=== PATIENT | female | born 1985 | race Two or more races ===

== ENCOUNTER 2020-02-20 15:53 | Emergency (ER) | payer MEDICAID, OTHER ==
[~2020-02-20] VITALS: Ht 167.6 cm; Wt 167.8 kg
[2020-02-20] MEDS ORDERED: KETOROLAC TROMETH 30 MG/ML 1ML VIAL IV ONE (16:45)
[2020-02-20] MEDS ORDERED: CEFTRIAXONE SODIUM 2 GM in D5W 5% 50 ML IV ONE (16:45)
[2020-02-20] MEDS ORDERED: cefTRIAXone 1GM/50ML D5W 100 ML IV ONE (17:04)
[2020-02-20 17:18] VITALS: BP 164/110
== END 2020-02-20 17:58 | disposition home or self-care (01) ==
LOC: ER 15:53
DX: S91.331A Puncture wound without foreign body, right foot, initial encounter (principal); M79.671 Pain in right foot; L08.89 Other specified local infections of the skin and subcutaneous tissue; E66.01 Morbid (severe) obesity due to excess calories; W56.81XA Bitten by other nonvenomous marine animals, initial encounter; Y93.89 Activity, other specified; Y92.832 Beach as the place of occurrence of the external cause; Y99.8 Other external cause status
CPT/HCPCS: 96365; 96375; 99284; J0696; J1885; J7060; 96374

== ENCOUNTER 2020-05-28 04:21 | Inpatient (IN) | payer MEDICAID ==
[~2020-05-28] VITALS: Ht 167.6 cm; Wt 169.6 kg
[2020-05-28] MEDS ORDERED: ONDANSETRON HCL 4 MG/2 ML VIAL IV ONE (04:45)
[2020-05-28] MEDS ORDERED: MORPHINE SULFATE 10 MG/ML INJ 1ML SDV IV ONE (04:45)
[2020-05-28] MEDS ORDERED: MORPHINE SULFATE 4 MG/ML SYR/VIAL IV ONE ×2 (05:15)
[2020-05-28] MEDS ORDERED: PIPERACILLIN-TAZO 4.5GM 100 ML IV ONE (05:45)
[2020-05-28] MEDS ORDERED: SODIUM CHLORIDE 0.9% 1,000 ML IV ONE (05:45)
[2020-05-28] MEDS ORDERED: metroNIDAZOLE 500MG/100ML 100 ML IV ONE (05:45)
[2020-05-28 06:11] LABS: Basophils # (auto) 0 10 ^3/uL (0-0.2); Basophils % (auto) 0.2 % (0.0-2.0); Eosinophils # (auto) 0 10 ^3/uL (0-0.8); Eosinophils % (auto) 0.2 % (0.0-7.0); Hematocrit 39.8 % (36.0-46.0); Hemoglobin 13.7 g/dL (12.2-16.2); Lymphocytes % (auto) 13.7 % (10.0-50.0); Mean Corpuscular Hemoglobin 28.9 pg (28.0-32.0); Mean Corpuscular Hgb Conc. 34.5 g/dL (32.0-36.0); Mean Corpuscular Volume 83.7 fL (80.0-100.0); Monocytes # (auto) 0.5 10 ^3/uL (0-1.3); Monocytes % (auto) 3.6 % (0.0-12.0); Neutrophils # (auto) 11.9 10 ^3/uL (1.6-8.6); Neutrophils % (auto) 82.3 % (37.0-80.0); Platelet Count (auto) 309 10^3/uL (140-450); Red Blood Cells 4.75 10^6/uL (4.0-5.20); Red Cell Distribution Width 14.5 % (11.8-14.3); White Blood Cell 14.5 10^3/uL (4.4-10.8)
[2020-05-28 06:21] LABS: INR 1.01 (0.9-1.15); Partial Thromboplastin Time 24.8 sec (23.0-31.2)
[2020-05-28 06:24] LABS: Chloride 102 mmol/L (98-107); Potassium 4.2 mmol/L (3.5-5.1); Sodium 135 mmol/L (136-145)
[2020-05-28 06:43] LABS: Alanine Aminotransferase 77 U/L (13-56); Albumin 3.6 g/dL (3.4-5.0); Alkaline Phosphatase 78 U/L (45-117); Amylase 13 U/L (25-115); Anion Gap 8 (5-15); Aspartate Aminotransferase 31 U/L (15-37); BUN/Creatinine Ratio 12.9; Bilirubin, Total 0.5 mg/dL (0.2-1.0); Blood Urea Nitrogen 11 mg/dL (7-18); Calcium 9.3 mg/dL (8.5-10.1); Carbon Dioxide 25 mmol/L (21-32); GFR African American 97 mL/min; GFR Non-African American 80 mL/min; Glucose 301 mg/dL (74-106); Lipase 82 U/L (73-393); Magnesium 1.9 mg/dL (1.6-2.6); Total Protein 7.5 g/dL (6.4-8.2)
[2020-05-28] MEDS ORDERED: ROCURONIUM 10MG/ML 10ML VIAL IV ONE ×2 (09:15→11:39)
[2020-05-28] MEDS ORDERED: fentaNYL CITRATE 100 MCG/2 ML VL ONE ×2 (09:15→11:40)
[2020-05-28] MEDS ORDERED: MEPERIDINE HCL (25 MG/ML) 1ML VIAL ONE (09:15)
[2020-05-28 09:16] LABS: Urine Bacteria NONE SEEN /hpf (None Seen); Urine Blood 2+ /uL (Negative); Urine Budding Yeast MANY /hpf (None Seen); Urine Mucus FEW (None Seen); Urine Specific Gravity 1.029 (1.001-1.035); Urine WBC 125 /hpf (0 - 5)
[2020-05-28] MEDS ORDERED: GLYCOPYRROLATE 0.2 MG/ML 1ML VIAL ONE (09:16)
[2020-05-28] MEDS ORDERED: MIDAZOLAM HCL 1MG/1ML-2 ML VIAL ONE (09:16)
[2020-05-28] MEDS ORDERED: SODIUM CHLORIDE LOCK 10 ML ONE (09:16)
[2020-05-28] MEDS ORDERED: ONDANSETRON HCL 4 MG/2 ML VIAL ONE (09:16)
[2020-05-28] MEDS ORDERED: PROPOFOL 10 MG/ML 20 ML IV ONE (09:16)
[2020-05-28] MEDS ORDERED: NEOSTIGMINE 1 MG/ML INJ (10mg/10ML VIAL) ONE (09:16)
[2020-05-28] MEDS ORDERED: METOCLOPRAMIDE HCL 5MG/ml INJ 2ml VIAL ONE (09:16)
[2020-05-28] MEDS ORDERED: DEXTROSE (50%) 50ML SYRG IV PRN (09:30)
[2020-05-28] MEDS ORDERED: NITROGLYCERIN 0.4 MG SL TAB SL PRN (09:30)
[2020-05-28] MEDS: SODIUM CHLORIDE 0.9% 1,000 ML IV SCH ×2 (09:30→21:16)
[2020-05-28] MEDS ORDERED: MORPHINE SULF INJ 2 MG/ML SYRINGE 1ML IV PRN ×2 (09:30)
[2020-05-28] MEDS ORDERED: cefTRIAXone 1GM/50ML D5W 50 ML IV ONE (09:30)
[2020-05-28] MEDS: FAMOTIDINE (10MG/ML) 2ML VL IV SCH ×2 (09:30→21:15)
[2020-05-28] MEDS ORDERED: POVIDONE IODINE 10 % TOPICAL OINT 30GM TOP ONE (10:23)
[2020-05-28] MEDS ORDERED: METOCLOPRAMIDE HCL 5MG/ml INJ 2ml VIAL IV PRN ×2 (10:30→12:45)
[2020-05-28] MEDS ORDERED: ACCU-CHEK COMFORT CURVE STRIP VI ONE (10:30)
[2020-05-28] MEDS ORDERED: HYDROmorphone HCL 2 MG/ML VL IV PRN ×2 (10:30→12:45)
[2020-05-28] MEDS ORDERED: MORPHINE SULFATE 4 MG/ML SYR/VIAL IV PRN ×2 (10:30→12:45)
[2020-05-28] MEDS: InsuLIN REG 1unit/0.01ml Soln (100units/ml) SC SCH ×3 (12:00→23:26)
[2020-05-28] MEDS: ACCU-CHEK COMFORT CURVE STRIP VI SCH ×3 (12:00→23:25)
[2020-05-28] MEDS: metroNIDAZOLE 500MG/100ML 100 ML IV SCH ×2 (14:53→21:15)
[2020-05-28 17:00] VITALS: BP 126/82
[2020-05-28] MEDS: MORPHINE SULF INJ 2 MG/ML SYRINGE 1ML IV PRN ×2 (17:32→21:30)
[2020-05-28] MEDS: PROMETHAZINE HCL 25 MG/ML 1ML IV PRN ×2 (17:38→21:30)
[2020-05-28 22:00] VITALS: BP 147/89
[2020-05-29] MEDS: MORPHINE SULF INJ 2 MG/ML SYRINGE 1ML IV PRN ×2 (03:05→08:49)
[2020-05-29] MEDS: PROMETHAZINE HCL 25 MG/ML 1ML IV PRN (03:06)
[2020-05-29 05:08] VITALS: BP 149/83
[2020-05-29] MEDS: metroNIDAZOLE 500MG/100ML 100 ML IV SCH ×3 (05:31→21:56)
[2020-05-29] MEDS: SODIUM CHLORIDE 0.9% 1,000 ML IV SCH ×2 (05:31→16:27)
[2020-05-29] MEDS: ACCU-CHEK COMFORT CURVE STRIP VI SCH ×3 (05:31→17:33)
[2020-05-29] MEDS: InsuLIN REG 1unit/0.01ml Soln (100units/ml) SC SCH ×2 (05:53→11:37)
[2020-05-29 06:36] LABS: Basophils # (auto) 0 10 ^3/uL (0-0.2); Basophils % (auto) 0.2 % (0.0-2.0); Eosinophils # (auto) 0 10 ^3/uL (0-0.8); Eosinophils % (auto) 0.2 % (0.0-7.0); Hematocrit 37.1 % (36.0-46.0); Hemoglobin 12.7 g/dL (12.2-16.2); Lymphocytes # (auto) 1.9 10 ^3/uL (0.4-5.4); Mean Corpuscular Hgb Conc. 34.3 g/dL (32.0-36.0); Mean Corpuscular Volume 84.4 fL (80.0-100.0); Monocytes # (auto) 0.8 10 ^3/uL (0-1.3); Monocytes % (auto) 7.4 % (0.0-12.0); Neutrophils # (auto) 7.7 10 ^3/uL (1.6-8.6); Neutrophils % (auto) 74.2 % (37.0-80.0); Nucleated Red Blood Cells % 0.1 %; Platelet Count (auto) 280 10^3/uL (140-450); Red Cell Distribution Width 14.9 % (11.8-14.3); White Blood Cell 10.4 10^3/uL (4.4-10.8)
[2020-05-29 06:52] LABS: Potassium 3.8 mmol/L (3.5-5.1)
[2020-05-29 07:05] LABS: Albumin 3.1 g/dL (3.4-5.0); BUN/Creatinine Ratio 12.3; Bilirubin, Total 0.8 mg/dL (0.2-1.0); Calcium 8.7 mg/dL (8.5-10.1); Total Protein 6.7 g/dL (6.4-8.2)
[2020-05-29 08:00] VITALS: BP 138/81
[2020-05-29] MEDS: cefTRIAXone 1GM/50ML D5W 50 ML IV SCH (08:48)
[2020-05-29 09:00] VITALS: BP 138/81
[2020-05-29] MEDS: FAMOTIDINE (10MG/ML) 2ML VL IV SCH ×2 (09:33→21:56)
[2020-05-29 12:31] VITALS: BP 147/91
[2020-05-29] MEDS ORDERED: LISINOPRIL 10 MG TAB PO ONE (14:30)
[2020-05-29 16:49] VITALS: BP 160/88
[2020-05-29] MEDS: metFORMIN HYDROCHLORIDE 500 MG TAB PO SCH (17:33)
[2020-05-29] MEDS: HYDROcodone-ACET 5/325MG TAB PO PRN (19:59)
[2020-05-29 22:00] VITALS: BP 154/75
[2020-05-30] MEDS: ACCU-CHEK COMFORT CURVE STRIP VI SCH ×4 (00:06→18:14)
[2020-05-30 05:00] VITALS: BP 151/74
[2020-05-30] MEDS: metroNIDAZOLE 500MG/100ML 100 ML IV SCH ×3 (06:00→22:45)
[2020-05-30 06:23] LABS: Basophils # (auto) 0 10 ^3/uL (0-0.2); Basophils % (auto) 0.5 % (0.0-2.0); Eosinophils # (auto) 0.2 10 ^3/uL (0-0.8); Eosinophils % (auto) 1.5 % (0.0-7.0); Hematocrit 35.7 % (36.0-46.0); Hemoglobin 12.1 g/dL (12.2-16.2); Lymphocytes # (auto) 2.7 10 ^3/uL (0.4-5.4); Lymphocytes % (auto) 26.7 % (10.0-50.0); Mean Corpuscular Hemoglobin 28.9 pg (28.0-32.0); Mean Corpuscular Volume 85.1 fL (80.0-100.0); Monocytes # (auto) 0.7 10 ^3/uL (0-1.3); Monocytes % (auto) 6.5 % (0.0-12.0); Neutrophils # (auto) 6.5 10 ^3/uL (1.6-8.6); Neutrophils % (auto) 64.8 % (37.0-80.0); Nucleated Red Blood Cells % 0.1 %; Platelet Count (auto) 279 10^3/uL (140-450); Red Blood Cells 4.19 10^6/uL (4.0-5.20); Red Cell Distribution Width 14.6 % (11.8-14.3); White Blood Cell 10.1 10^3/uL (4.4-10.8)
[2020-05-30] MEDS: MORPHINE SULF INJ 2 MG/ML SYRINGE 1ML IV PRN (06:30)
[2020-05-30 06:43] LABS: Potassium 3.3 mmol/L (3.5-5.1)
[2020-05-30 06:52] LABS: BUN/Creatinine Ratio 11.3; Calcium 8.6 mg/dL (8.5-10.1)
[2020-05-30] MEDS: SODIUM CHLORIDE 0.9% 1,000 ML IV SCH ×2 (07:10→23:50)
[2020-05-30 08:38] VITALS: BP 156/99
[2020-05-30] MEDS: metFORMIN HYDROCHLORIDE 500 MG TAB PO SCH (08:55)
[2020-05-30] MEDS: FAMOTIDINE (10MG/ML) 2ML VL IV SCH ×2 (09:03→22:45)
[2020-05-30] MEDS: cefTRIAXone 1GM/50ML D5W 50 ML IV SCH (09:03)
[2020-05-30] MEDS: LISINOPRIL 10 MG TAB PO SCH (09:08)
[2020-05-30 12:57] VITALS: BP 162/84
[2020-05-30] MEDS: HYDROcodone-ACET 5/325MG TAB PO PRN (13:26)
[2020-05-30] MEDS ORDERED: POTASSIUM EFFERVESENT TAB 25 MEQ PO ONE (15:30)
[2020-05-30] MEDS ORDERED: SIMETHICONE 80 MG CHEWABLE TABLET PO PRN (15:45)
[2020-05-30] MEDS ORDERED: LACTULOSE 20Gm/30ML SOLN PO PRN (15:45)
[2020-05-30 16:49] VITALS: BP 143/84
[2020-05-30] MEDS: metFORMIN HYDROCHLORIDE 850 MG TAB PO SCH (18:14)
[2020-05-30] MEDS ORDERED: NIFEdipine ER 30 MG TAB PO ONE (22:30)
[2020-05-31 00:04] VITALS: BP 158/93
[2020-05-31] MEDS: HYDROcodone-ACET 5/325MG TAB PO PRN (03:15)
[2020-05-31 05:36] VITALS: BP 143/83
[2020-05-31] MEDS: metroNIDAZOLE 500MG/100ML 100 ML IV SCH (06:00)
[2020-05-31] MEDS: ACCU-CHEK COMFORT CURVE STRIP VI SCH ×4 (06:00→18:00)
[2020-05-31 06:54] LABS: Basophils # (auto) 0 10 ^3/uL (0-0.2); Basophils % (auto) 0.4 % (0.0-2.0); Eosinophils # (auto) 0.2 10 ^3/uL (0-0.8); Eosinophils % (auto) 1.9 % (0.0-7.0); Hematocrit 35.6 % (36.0-46.0); Hemoglobin 12.1 g/dL (12.2-16.2); Lymphocytes # (auto) 2.6 10 ^3/uL (0.4-5.4); Lymphocytes % (auto) 27.3 % (10.0-50.0); Mean Corpuscular Hemoglobin 28.8 pg (28.0-32.0); Mean Corpuscular Volume 84.7 fL (80.0-100.0); Monocytes # (auto) 0.6 10 ^3/uL (0-1.3); Monocytes % (auto) 6.3 % (0.0-12.0); Neutrophils # (auto) 6.2 10 ^3/uL (1.6-8.6); Neutrophils % (auto) 64.1 % (37.0-80.0); Nucleated Red Blood Cells % 0.1 %; Platelet Count (auto) 316 10^3/uL (140-450); Red Blood Cells 4.21 10^6/uL (4.0-5.20); Red Cell Distribution Width 14.5 % (11.8-14.3); White Blood Cell 9.6 10^3/uL (4.4-10.8)
[2020-05-31 07:13] LABS: Calcium 8.5 mg/dL (8.5-10.1); Potassium 3.5 mmol/L (3.5-5.1)
[2020-05-31 07:17] LABS: BUN/Creatinine Ratio 12.7
[2020-05-31 08:00] VITALS: BP 145/87
[2020-05-31] MEDS: cefTRIAXone 1GM/50ML D5W 50 ML IV SCH (09:36)
[2020-05-31] MEDS: FAMOTIDINE (10MG/ML) 2ML VL IV SCH ×2 (09:37→21:33)
[2020-05-31] MEDS: metFORMIN HYDROCHLORIDE 850 MG TAB PO SCH ×2 (09:37→18:51)
[2020-05-31] MEDS: LISINOPRIL 10 MG TAB PO SCH (09:42)
[2020-05-31] MEDS ORDERED: LISINOPRIL 10 MG TAB PO ONE (12:45)
[2020-05-31 13:00] VITALS: BP 163/93
[2020-05-31] MEDS: metroNIDAZOLE 500 MG TAB PO SCH ×2 (14:26→21:32)
[2020-05-31 17:00] VITALS: BP 148/82
[2020-05-31 22:00] VITALS: BP 160/96
[2020-06-01] MEDS: ACCU-CHEK COMFORT CURVE STRIP VI SCH ×3 (00:04→11:51)
[2020-06-01 05:12] VITALS: BP 162/82
[2020-06-01] MEDS: metroNIDAZOLE 500 MG TAB PO SCH ×2 (05:57→14:03)
[2020-06-01] MEDS: LISINOPRIL 10 MG TAB PO SCH ×2 (07:03→09:11)
[2020-06-01 09:00] VITALS: BP 165/80
[2020-06-01] MEDS: cefTRIAXone 1GM/50ML D5W 50 ML IV SCH (09:09)
[2020-06-01] MEDS: FAMOTIDINE (10MG/ML) 2ML VL IV SCH (09:10)
[2020-06-01] MEDS: metFORMIN HYDROCHLORIDE 850 MG TAB PO SCH (09:12)
[2020-06-01 13:00] VITALS: BP 170/85
[2020-06-01] MEDS ORDERED: cloNIDine HCL 0.1 MG TAB PO ONE (13:00)
== END 2020-06-01 17:45 | disposition home or self-care (01) | DRG 710 ==
LOC: ER 04:21 → TELE 04:22 → TELE-WESTW 14:21 → WEST WING 06-01 03:36
PROVIDERS: ADMIT Internal Medicine; ATTEND Internal Medicine
PROC: 0WJG4ZZ Inspection of Peritoneal Cavity, Percutaneous Endoscopic Approach (ICD-10-PCS; 2020-05-28)
PROC: 0DTJ0ZZ Resection of Appendix, Open Approach (ICD-10-PCS; principal; 2020-05-28 10:48)
DX: A41.9 Sepsis, unspecified organism (principal); K35.30 Acute appendicitis with localized peritonitis, without perforation or gangrene; E66.01 Morbid (severe) obesity due to excess calories; R16.0 Hepatomegaly, not elsewhere classified; E11.65 Type 2 diabetes mellitus with hyperglycemia; Z68.44 Body mass index [BMI] 60.0-69.9, adult; Z20.828 Contact with and (suspected) exposure to other viral communicable diseases; I10 Essential (primary) hypertension; K80.20 Calculus of gallbladder without cholecystitis without obstruction; K42.9 Umbilical hernia without obstruction or gangrene; N20.0 Calculus of kidney; E87.6 Hypokalemia; N21.0 Calculus in bladder; K76.0 Fatty (change of) liver, not elsewhere classified; Z79.84 Long term (current) use of oral hypoglycemic drugs; Z53.31 Laparoscopic surgical procedure converted to open procedure; Z79.899 Other long term (current) drug therapy; Z87.442 Personal history of urinary calculi
CPT/HCPCS: 36415; 71045; 74176; 80048; 80053; 81001; 82150; 82962; 83036; 83690; 83735; 84484; 84702; 85025; 85610; 85730; 86850; 86900; 86901; 87426; 93005; 96365; 96367; 96375; G0378; J0696; J1815; J2250; J2405; J2543; J2704; J3490

== ENCOUNTER 2022-12-27 08:20 | Emergency (ER) | payer MEDICAID ==
[~2022-12-27] VITALS: Ht 167.6 cm; Wt 154.0 kg
[2022-12-27 08:57] LABS: Urine Bacteria NONE SEEN /hpf (None Seen); Urine Blood Negative /uL (Negative); Urine Mucus FEW (None Seen); Urine Specific Gravity 1.047 (1.001-1.035); Urine WBC 7 /hpf (0 - 5)
[2022-12-27 09:22] LABS: Basophils # (auto) 0 10 ^3/uL (0-0.2); Basophils % (auto) 0.6 % (0.0-2.0); Eosinophils # (auto) 0.3 10 ^3/uL (0-0.8); Eosinophils % (auto) 3.9 % (0.0-7.0); Hematocrit 41.9 % (36.0-46.0); Hemoglobin 14.5 g/dL (12.2-16.2); Lymphocytes % (auto) 29.7 % (10.0-50.0); Mean Corpuscular Hemoglobin 29.1 pg (28.0-32.0); Mean Corpuscular Hgb Conc. 34.6 g/dL (32.0-36.0); Mean Corpuscular Volume 84.2 fL (80.0-100.0); Monocytes # (auto) 0.4 10 ^3/uL (0-1.3); Monocytes % (auto) 5.5 % (0.0-12.0); Neutrophils % (auto) 60.3 % (37.0-80.0); Nucleated Red Blood Cells % 0.1 %; Red Blood Cells 4.98 10^6/uL (4.0-5.20); Red Cell Distribution Width 13.6 % (11.8-14.3); White Blood Cell 6.6 10^3/uL (4.4-10.8)
[2022-12-27 09:56] LABS: Potassium 4.1 mmol/L (3.5-5.1)
[2022-12-27 10:04] LABS: Albumin 3.4 g/dL (3.4-5.0); BUN/Creatinine Ratio 18.8 (10.0-20.0); Bilirubin, Total 0.5 mg/dL (0.2-1.0); Calcium 9.2 mg/dL (8.5-10.1); Total Protein 7.1 g/dL (6.4-8.2)
[2022-12-27] MEDS ORDERED: ACYCLOVIR 400 MG TAB PO ONE (11:45)
[2022-12-27] MEDS ORDERED: HYDR1TAB97 PO (11:45)
[2022-12-27] MEDS ORDERED: VALA1TAB34 PO (11:45)
[2022-12-27] MEDS ORDERED: predniSONE 20 MG TAB PO ONE (11:45)
[2022-12-27 13:01] VITALS: BP 150/74
== END 2022-12-27 13:08 | disposition home or self-care (01) ==
LOC: ER 08:20
DX: K80.20 Calculus of gallbladder without cholecystitis without obstruction (principal); K46.9 Unspecified abdominal hernia without obstruction or gangrene; M62.08 Separation of muscle (nontraumatic), other site; B02.9 Zoster without complications; Z32.02 Encounter for pregnancy test, result negative; Z87.442 Personal history of urinary calculi
CPT/HCPCS: 36415; 74176; 76705; 80053; 81001; 81025; 83605; 83690; 85025; 99284; J7512